=== PATIENT | male | born 1970 | race American Indian/Alaskan Native ===

== ENCOUNTER 2017-11-21 06:11 | Emergency (ER) | payer SELFPAY ==
--- NOTE | 2017-11-21 07:55 | Emergency Department Report ---
ED Lower Extremity HPI - General Chief Complaint: Extremity Problem,Nontraumatic Stated Complaint: HIP INJURY Time Seen by Provider: 11/21/17 07:50 Source: patient, family Mode of arrival: Ambulatory Limitations: No Limitations - History of Present Illness Initial Comments: This is 47-year-old male here reported that he injured his left hip a while back and he think it was sciatica he said he heard is a 2 weeks ago worked pain started at 10 and is unable to apply pressure. He says that it is kind enough for circulation to his left leg. Pain is achy worse with movement no alleviating factors and no medication taken. Patient denies any medical problem he said this is happened in the past but he has not seek any attention. Denies any fever or chills, any trauma, bruising or erythema to his left hip MD Complaint: hip injury Onset/Timin -: week(s) Injury: Hip: Left (pain) Type of Injury: hyperflexion Place: work Severity: severe Severity scale (0 -10): 10 Improves With: nothing Worsens With: weight bearing, movement, palpation Context: walking Associated Symptoms: ambulatory. denies: snap/pop sensation, swelling, numbness , tingling, unable to bear weight, able to partially bear weight Treatments Prior to Arrival: other (none) - Related Data Previous Rx's Medication Instructions Recorded Last Taken Type Ibuprofen [Motrin] 600 mg PO Q8H PRN #12 tablet 11/21/17 Unknown Rx traMADol [Ultram 50 MG tab] 50 mg PO Q6HR PRN #14 tablet 11/21/17 Unknown Rx Allergies Allergy/AdvReac Type Severity Reaction Status Date / Time No Known Allergies Allergy Unverified 11/21/17 06:22 ED Review of Systems ROS: Stated complaint: HIP INJURY Other details as noted in HPI Constitutional: denies: chills, fever Respiratory: denies: cough, shortness of breath, wheezing Cardiovascular: denies: chest pain, palpitations, edema, syncope Gastrointestinal: denies: nausea, vomiting Genitourinary: urgency Musculoskeletal: arthralgia. denies: back pain, joint swelling Skin: denies: rash, lesions Neurological: abnormal gait (left hip). denies: headache, weakness, numbness, paresthesias, confusion, vertigo ED Past Medical Hx - Past Medical History Previous Medical History?: No - Surgical History Past Surgical History?: No - Family History Family history: hypertension - Social History Smoking Status: Current Every Day Smoker Substance Use Type: Alcohol, Marijuana - Medications Home Medications: Home Medications Medication Instructions Recorded Confirmed Last Taken Type Ibuprofen [Motrin] 600 mg PO Q8H PRN #12 tablet 11/21/17 Unknown Rx traMADol [Ultram 50 MG tab] 50 mg PO Q6HR PRN #14 tablet 11/21/17 Unknown Rx ED Physical Exam - General Limitations: No Limitations General appearance: alert, in no apparent distress - Head Head exam: Present: atraumatic, normocephalic, normal inspection - Eye Eye exam: Present: normal appearance, PERRL, EOMI - ENT ENT exam: Present: normal exam, normal orophraynx, mucous membranes moist - Neck Neck exam: Present: normal inspection, full ROM. Absent: tenderness, lymphadenopathy - Respiratory Respiratory exam: Present: normal lung sounds bilaterally. Absent: respiratory distress, chest wall tenderness - Cardiovascular Cardiovascular Exam: Present: regular rate, normal rhythm, normal heart sounds. Absent: systolic murmur, diastolic murmur - GI/Abdominal GI/Abdominal exam: Present: soft, normal bowel sounds. Absent: tenderness, rigid - Extremities Exam Extremities exam: Present: normal inspection, full ROM (for range of motion to all extremity except he has pain with abduction and abduction of the left hip.) , tenderness (nontender to palpate), normal capillary refill, other (No cce. + 2 pulses in all extremities, no neurovascular compromise. No circulatory compromise to lower extremities). Absent: pedal edema, joint swelling, calf tenderness - Back Exam Back exam: Present: normal inspection, full ROM. Absent: tenderness, CVA tenderness (R), CVA tenderness (L), muscle spasm, paraspinal tenderness, vertebral tenderness, rash noted - Neurological Exam Neurological exam: Present: alert, oriented X3, abnormal gait (abnormal gait to left lower extremity due to pain), reflexes normal. Absent: motor sensory deficit - Psychiatric Psychiatric exam: Present: normal affect, normal mood - Skin Skin exam: Present: warm, dry, intact, normal color. Absent: rash ED Course Vital Signs 11/21/17 11/21/17 11/21/17 06:20 08:51 08:52 Temperature 98.6 F Pulse Rate 85 Respiratory 20 20 20 Rate Blood Pressure 145/105 Blood Pressure 140/98 [Left] O2 Sat by Pulse 98 Oximetry - Reevaluation(s) Reevaluation #1: 11/21/17 08:54 Patient given Motrin 800 mg by mouth ED Lower Extremity MDM - Radiology Data Radiology results: report reviewed X-ray of left hip shows left hip joint appears normal. The bony pelvic ring appears intact. The right hip and SI joints appear well maintained. There are small calcification along the floor of the pelvis. Unremarkable left hip. This was dictated by radiologist and reported reviewed by myself. - Medical Decision Making This is a 47-year-old male here complaining left hip pain after injuring his left A for work 2 weeks ago. X-ray of left hip and pelvis shows no acute findings. Assessment/plan Arthralgia left hip-negative findings and x-ray. He was given Motrin 800 mg by mouth and Zestril 25 one tablet by mouth in the emergency room which helped his pain. Patient referred to orthopedic doctor to follow up in 2 days and I also explained diagnosis, treatment plan and x-ray findings. Rice therapy explained and he fevers understanding and discharged home in stable condition with prescription for Motrin and Ultram. Vital signs are stable and he has a febrile - Differential Diagnosis FX, dislocation, DJD, muscle or skeletal pain Critical care attestation.: If time is entered above; I have spent that time in minutes in the direct care of this critically ill patient, excluding procedure time. ED Disposition Clinical Impression: Arthralgia of left hip Disposition: DC-01 TO HOME OR SELFCARE Is pt being admited?: No Does the pt Need Aspirin: No Condition: Stable Instructions: Arthralgia (ED), RICE Therapy (ED) Additional Instructions: Follow-up with orthopedic doctor as instructed Take Motrin for mild to moderate pain and Ultram for severe pain but please do not drive or operate heavy machinery while taking Ultram as a cause drowsiness See Discharge instruction on Rice therapy Referrals: PRIMARY MD DOT [Primary Care Provider] - 3-5 Days AMARILYS ARRINGTON MD [Staff Physician] - 11/23/17 [facility] [Outside] - 11/23/17 Forms: Work/School Release Form(ED), Accompanied Note
[2017-11-21] MEDS ORDERED: NORCO 5/325 PO ONE (08:20)
[2017-11-21] MEDS ORDERED: MOTRIN PO ONE (08:20)
[2017-11-21 08:52] VITALS: BP 140/98
--- NOTE | 2017-11-21 10:29 | XRay Report ---
FINAL REPORT EXAM: XRAY HIP AND PELVIS HISTORY: left hip pain TECHNIQUE: Two views of the left hip were obtained along with an AP view of the pelvis. FINDINGS: Left hip joint appears normal. The bony pelvic ring appears intact. The right hip and SI joints appear well maintained. There are small calcifications along the floor of the pelvis. IMPRESSION: Unremarkable left hip.
== END 2017-11-21 09:16 | disposition home or self-care (01) ==
LOC: ED 06:11
DX: M25.552 Pain in left hip (principal); F17.200 Nicotine dependence, unspecified, uncomplicated; F12.10 Cannabis abuse, uncomplicated
CPT/HCPCS: 99283